=== PATIENT | female | born 1985 | race Two or more races ===

== ENCOUNTER 2017-10-08 13:17 | Inpatient (IN) | payer SELFPAY ==
[~2017-10-08] VITALS: Ht 167.6 cm; Wt 63.9 kg
[2017-10-08 14:40] LABS: Basophils # (auto) 0.1 uL; Eosinophils # (auto) 0.1 uL; Hemoglobin 10.9 g/dL (12.2-16.2); Mean Corpuscular Volume 76.5 fL (80.0-100.0); Neutrophils # (auto) 5.2 uL
[2017-10-08 14:42] LABS: Basophils % (auto) 0.9 % (0.0-2.0); Eosinophils % (auto) 0.8 % (0.0-7.0); Hematocrit 35.2 % (36.0-46.0); Lymphocytes # (auto) 1.5 uL; Mean Corpuscular Hemoglobin 23.8 pg (28.0-32.0); Mean Corpuscular Hgb Conc. 31.1 g/dL (32.0-36.0); Mean Platelet Volume 8.4 fL (6.9-10.8); Monocytes # (auto) 0.6 uL; Neutrophils % (auto) 70.3 % (37.0-80.0); Platelet Count (auto) 388 10^3/uL (140-450); Red Cell Distribution Width 21.8 % (11.8-14.3); White Blood Cell 7.4 10^3/uL (4.4-10.8)
[2017-10-08 14:44] LABS: Albumin 3.6 g/dL (3.4-5.0); BUN/Creatinine Ratio 19.2; Bilirubin, Total 0.5 mg/dL (0.2-1.0); Calcium 8.8 mg/dL (8.5-10.1); Potassium 4.4 mmol/L (3.5-5.1); Total Protein 8.8 g/dL (6.4-8.2)
[2017-10-08 14:57] LABS: Anisocytosis Slight; Hypochromia Slight; Microcytosis Slight; Platelet Estimate Adequate
[2017-10-09 00:03] LABS: Eosinophils # (auto) 0.1 uL; Mean Corpuscular Volume 76.1 fL (80.0-100.0); Neutrophils # (auto) 3.8 uL; White Blood Cell 6.1 10^3/uL (4.4-10.8)
[2017-10-09 00:05] LABS: Basophils # (auto) 0 uL; Basophils % (auto) 0.5 % (0.0-2.0); Hematocrit 32.5 % (36.0-46.0); Hemoglobin 10.3 g/dL (12.2-16.2); Lymphocytes # (auto) 1.4 uL; Lymphocytes % (auto) 23.1 % (10.0-50.0); Mean Corpuscular Hgb Conc. 31.5 g/dL (32.0-36.0); Mean Platelet Volume 8.2 fL (6.9-10.8); Monocytes # (auto) 0.7 uL; Monocytes % (auto) 12.2 % (0.0-12.0); Neutrophils % (auto) 62.2 % (37.0-80.0); Platelet Count (auto) 344 10^3/uL (140-450)
[2017-10-09 00:09] LABS: Red Cell Distribution Width 21.6 % (11.8-14.3)
[2017-10-09 00:17] LABS: Albumin 3.4 g/dL (3.4-5.0); BUN/Creatinine Ratio 21.8; Calcium 8.8 mg/dL (8.5-10.1)
[2017-10-09 00:20] LABS: Bilirubin, Total 0.6 mg/dL (0.2-1.0); Total Protein 8.3 g/dL (6.4-8.2)
[2017-10-09 00:52] LABS: Anisocytosis Slight; Platelet Estimate Adequate
[2017-10-09 00:53] LABS: Ovalocytes FEW; Stomatocytes Few
[2017-10-09] MEDS ORDERED: metroNIDAZOLE 500MG/100ML 100 ML IV ONE (01:30)
[2017-10-09] MEDS ORDERED: cefTRIAXone 1GM/10ml IVPUSH 10 ML IV ONE (01:30)
[2017-10-09 05:09] LABS: Urine Bilirubin Negative (Negative); Urine Blood Negative /uL (Negative); Urine Color Yellow (Yellow); Urine Glucose Normal (Normal); Urine Hyaline Cast FEW /lpf (0 - 2); Urine Ketone 1+ (Negative); Urine Mucus FEW (None Seen); Urine Nitrite Negative (Negative); Urine RBC 8 /hpf (0 - 4); Urine Squamous Epithelial Cell FEW /hpf (<5); Urine pH 5.5 (5.0-8.0)
[2017-10-09] MEDS ORDERED: ACETAMINOPHEN 325 MG TAB PO PRN (06:15)
[2017-10-09] MEDS ORDERED: SODIUM CHLORIDE 0.9% 1,000 ML IV ONE (06:15)
[2017-10-09] MEDS ORDERED: SODIUM CHLORIDE 0.9% 1,000 ML IV SCH (06:15)
[2017-10-09] MEDS ORDERED: ONDANSETRON HCL 4 MG/2 ML VIAL IV PRN (06:15)
[2017-10-09] MEDS ORDERED: MORPHINE SULF INJ 2 MG/ML SYRINGE 1ML IV PRN (06:15)
[2017-10-09] MEDS ORDERED: HYDROcodone-ACET 5/325MG TAB PO PRN (06:15)
[2017-10-09] MEDS: SODIUM CHLORIDE 0.9% 1,000 ML IV SCH ×2 (06:50→18:02)
[2017-10-09 09:00] VITALS: BP 96/56
[2017-10-09] MEDS: PANTOPRAZOLE 40 MG/10 ML VIAL IV SCH (10:24)
[2017-10-09] MEDS: cefTRIAXone 1GM/10ml IVPUSH 10 ML IV SCH (11:24)
[2017-10-09 13:00] VITALS: BP 88/59
[2017-10-09] MEDS: metroNIDAZOLE 500MG/100ML 100 ML IV SCH ×2 (13:58→21:48)
[2017-10-09 17:39] VITALS: BP 92/46
[2017-10-09 22:00] VITALS: BP 91/44
[2017-10-10] MEDS: SODIUM CHLORIDE 0.9% 1,000 ML IV SCH ×3 (03:19→22:34)
[2017-10-10 05:31] VITALS: BP 92/51
[2017-10-10] MEDS: metroNIDAZOLE 500MG/100ML 100 ML IV SCH ×3 (05:36→22:10)
[2017-10-10 08:01] LABS: Basophils # (auto) 0 uL; Hematocrit 27.5 % (36.0-46.0); Hemoglobin 8.5 g/dL (12.2-16.2); Neutrophils # (auto) 1.7 uL; Nucleated Red Blood Cells % 0.1 %
[2017-10-10 08:03] LABS: Basophils % (auto) 0.5 % (0.0-2.0); Eosinophils # (auto) 0.1 uL; Eosinophils % (auto) 2.5 % (0.0-7.0); Lymphocytes # (auto) 0.9 uL; Mean Corpuscular Hemoglobin 24.2 pg (28.0-32.0); Mean Corpuscular Volume 78.1 fL (80.0-100.0); Mean Platelet Volume 8.4 fL (6.9-10.8); Monocytes # (auto) 0.2 uL; Monocytes % (auto) 8.1 % (0.0-12.0); Neutrophils % (auto) 56.9 % (37.0-80.0); Platelet Count (auto) 235 10^3/uL (140-450); White Blood Cell 2.9 10^3/uL (4.4-10.8)
[2017-10-10 08:17] LABS: Prothrombin Time 10.9 sec (9.37-12.3)
[2017-10-10 08:23] LABS: Albumin 2.9 g/dL (3.4-5.0); BUN/Creatinine Ratio 33.3; Bilirubin, Total 0.6 mg/dL (0.2-1.0); Magnesium 2.2 mg/dL (1.6-2.6); Potassium 3.8 mmol/L (3.5-5.1); Total Protein 6.8 g/dL (6.4-8.2)
[2017-10-10] MEDS: cefTRIAXone 1GM/10ml IVPUSH 10 ML IV SCH (08:40)
[2017-10-10 08:57] VITALS: BP 87/48
[2017-10-10] MEDS: PANTOPRAZOLE 40 MG/10 ML VIAL IV SCH (10:19)
[2017-10-10] MEDS ORDERED: GASTROGRAFIN 30 ML SOL ONE (12:50)
[2017-10-10 12:56] VITALS: BP 91/51
[2017-10-10 13:25] LABS: Eosinophils # (auto) 0.1 uL; Lymphocytes # (auto) 1.2 uL; Monocytes # (auto) 0.4 uL; Neutrophils # (auto) 3.2 uL
[2017-10-10 13:27] LABS: Basophils # (auto) 0.1 uL; Basophils % (auto) 1.5 % (0.0-2.0); Hematocrit 29.7 % (36.0-46.0); Hemoglobin 9.1 g/dL (12.2-16.2); Lymphocytes % (auto) 23.9 % (10.0-50.0); Mean Corpuscular Hemoglobin 24.4 pg (28.0-32.0); Mean Corpuscular Hgb Conc. 30.7 g/dL (32.0-36.0); Mean Corpuscular Volume 79.5 fL (80.0-100.0); Mean Platelet Volume 8.3 fL (6.9-10.8); Monocytes % (auto) 7.4 % (0.0-12.0); Neutrophils % (auto) 66.2 % (37.0-80.0); Nucleated Red Blood Cells % 0.2 %; Platelet Count (auto) 218 10^3/uL (140-450); White Blood Cell 4.8 10^3/uL (4.4-10.8)
[2017-10-10 13:40] LABS: Red Cell Distribution Width 22.2 % (11.8-14.3)
[2017-10-10 13:42] LABS: Calcium 8.2 mg/dL (8.5-10.1); Potassium 3.9 mmol/L (3.5-5.1)
[2017-10-10 16:56] VITALS: BP 110/69
[2017-10-10 22:00] VITALS: BP 116/70
[2017-10-11 05:00] VITALS: BP 120/77
[2017-10-11] MEDS: metroNIDAZOLE 500MG/100ML 100 ML IV SCH (05:30)
[2017-10-11 08:08] VITALS: BP 100/58
[2017-10-11] MEDS: cefTRIAXone 1GM/10ml IVPUSH 10 ML IV SCH (09:46)
[2017-10-11] MEDS: PANTOPRAZOLE 40 MG/10 ML VIAL IV SCH (09:47)
[2017-10-11] MEDS: SODIUM CHLORIDE 0.9% 1,000 ML IV SCH (09:47)
[2017-10-11 12:58] VITALS: BP 121/76
[2017-10-11 13:30] VITALS: BP 121/76
== END 2017-10-11 16:20 | disposition home or self-care (01) | DRG 395 ==
LOC: ER 13:23 → WEST WING 13:24
PROVIDERS: ADMIT Nurse Practitioner; ATTEND Family Medicine
DX: K35.80 Unspecified acute appendicitis (principal); F32.9 Major depressive disorder, single episode, unspecified; K52.9 Noninfective gastroenteritis and colitis, unspecified; N83.201 Unspecified ovarian cyst, right side; Z90.49 Acquired absence of other specified parts of digestive tract; N20.0 Calculus of kidney; K62.89 Other specified diseases of anus and rectum; F41.9 Anxiety disorder, unspecified
CPT/HCPCS: 36415; 74176; 76705; 80048; 80053; 81001; 83690; 83735; 84702; 85025; 85610; 96365; 96368; 96375; C9113; J3490